=== PATIENT | female | born 1995 | race African-American/Black ===

== ENCOUNTER 2018-03-10 11:38 | Emergency (ER) | payer SELFPAY ==
[~2018-03-10] VITALS: Ht 160 cm; Wt 60.0 kg
[~2018-03-10 11:38] MED LIST: BACT800T5 PO; CEPH500C3 PO
[2018-03-10 11:57] VITALS: BP 124/57; PULSE 75; RESP 16; TEMP 98; O2SAT 100
[2018-03-10] MEDS ORDERED: PERM5CRE11 TOPICAL (12:41)
[2018-03-10] MEDS ORDERED: VIST25CA PO (12:41)
--- NOTE | 2018-03-10 12:45 | PD ---
HPI Chief Complaint: Skin Problem Time Seen by Provider: 12:34 Travel History International Travel<30 days: No Contact w/Intl Traveler<30days: No Traveled to known affect area: No History of Present Illness HPI 22-year-old female that presents to the ED for evaluation of itchy rash to her buttocks. Per patient she developed this for the past couple days. Per patient 's very itchy and she believes that is related to box. Per patient today she woke up and saw black block right next to her bed. She believes that this is related to that. She denies any pain with it. Per patient she is noted that some of her roommates has had some bug bites as well but she is only one was getting bad reactions to it. Denies any fevers chills or sweats. No history of this in the past. She just moved to a new apartment. Has no allergies to medication. No other medical issues. PFSH Past Medical History ?: Not Social History Alcohol Use: No Tobacco Use: No Substance Use: No Allergies-Medications (Allergen,Severity, Reaction): Coded Allergies: No Known Allergies (Unverified , 08/16/14) Reported Meds & Prescriptions Reported Meds & Active Scripts Active Vistaril (Hydroxyzine Pamoate) 25 Mg Cap 25 Mg PO Q6H PRN Elimite Topical (Permethrin) 5% Cream 1 Applic TOPICAL ONCE Bactrim DS (Sulfamethoxazole-Trimethoprim DS) 1 Tab Tab 1 Tab PO BID 10 Days Keflex (Cephalexin Monohydrate) 500 Mg Cap 500 Mg PO Q8 10 Days Review of Systems Except as stated in HPI: all other systems reviewed are Neg Physical Exam Narrative GENERAL: SKIN: Warm and dry. Seen with female nurse present at all times. Patient has a bug bite-like rash on her buttocks and tightness as well as her back and some blood in her chest as well. Big and appeared to follow linear bite audrey. Some of them appear to be 3 dots in a row. HEAD: Atraumatic. Normocephalic. EYES: Pupils equal and round. No scleral icterus. No injection or drainage. ENT: No nasal bleeding or discharge. Mucous membranes pink and moist. NECK: Trachea midline. No JVD. CARDIOVASCULAR: Regular rate and rhythm. RESPIRATORY: No accessory muscle use. Clear to auscultation. Breath sounds equal bilaterally. GASTROINTESTINAL: Abdomen soft, non-tender, nondistended. Hepatic and splenic margins not palpable. MUSCULOSKELETAL: Extremities without clubbing, cyanosis, or edema. No obvious deformities. NEUROLOGICAL: Awake and alert. No obvious cranial nerve deficits. Motor grossly within normal limits. Five out of 5 muscle strength in the arms and legs. Normal speech. PSYCHIATRIC: Appropriate mood and affect; insight and judgment normal. Data Data Last Documented VS Vital Signs Date Time Temp Pulse Resp B/P (MAP) Pulse Ox O2 Delivery O2 Flow Rate FiO2 03/10/18 11:57 98.0 75 16 124/57 (79) 100 Orders Orders Ed Discharge Order (03/10/18 12:39) [facility] Medical Decision Making Medical Screen Exam Complete: Yes Emergency Medical Condition: Yes Medical Record Reviewed: Yes Differential Diagnosis Bedbugs versus scabies versus insect bites Narrative Course 22-year-old female that presents to the ED for evaluation of bites to her buttocks. Patient was properly examined and was found to have signs and symptoms consistent appears to be bedbug bites. At this time patient was strongly encouraged to follow with this controlled to get rid of the bugs on her apartment. She was given a prescription for Vistaril to help with itchiness. She was given a prescription for permethrin to cover for scabies although this appears to be less likely. See ED worsening symptoms. Follow-up with PCP. Diagnosis Primary Impression: Bedbug bite Qualified Codes: W57.XXXA - Bitten or stung by nonvenomous insect and other nonvenomous arthropods, initial encounter Patient Instructions: General Instructions Additional Instructions: Follow-up with pest control. See ED if worsening symptoms. Take medications as prescribed. Wash all your clothes with hot water to kill the bugs as sometimes they can hide on clothes and bed linings. Med/Other Pt SpecificInfo: Prescription(s) given Scripts Hydroxyzine Pamoate (Vistaril) 25 Mg Cap 25 MG PO Q6H Y for ITCHING, #20 CAP 0 Refills Prov: Ricky Heck MD 03/10/18 Permethrin Topical (Elimite Topical) 5% Cream 1 APPLIC TOPICAL ONCE for Scabies, #1 TUBE 0 Refills Prov: Ricky Heck MD 03/10/18 Disposition: 01 DISCHARGE HOME Condition: Stable Quirino Daniels 11, 2018 12:45
== END 2018-03-10 13:26 | disposition home or self-care (01) ==
LOC: NEPK 11:38
DX: S30.860A Insect bite (nonvenomous) of lower back and pelvis, initial encounter (principal); W57.XXXA Bitten or stung by nonvenomous insect and other nonvenomous arthropods, initial encounter
CPT/HCPCS: 99283